=== PATIENT | female | born 1990 | race Two or more races ===

== ENCOUNTER 2022-12-06 12:51 | Inpatient (IN) | payer BC ==
[2022-12-06 13:23] VITALS: BMI 31.8
[2022-12-06] MEDS ORDERED: MAG HYDROX/AL HYDROX/SIMETH 30 ML UNIT-DOSE CUP PO PRN (13:46)
[2022-12-06] MEDS ORDERED: METHOCARBAMOL 500 MG TABLET PO PRN (13:46)
[2022-12-06] MEDS ORDERED: BENZOCAINE/MENTHOL (CHLORASEPTIC ) LOZENGE MM PRN (13:46)
[2022-12-06] MEDS ORDERED: guaiFENesin 600 MG TABLET.ER (FP) PO PRN (13:46)
[2022-12-06] MEDS ORDERED: NALOXONE HCL 0.4 MG/ML VIAL IM PRN (13:46)
[2022-12-06] MEDS ORDERED: ONDANSETRON *ODT* 4 MG TABLET SL PRN (13:46)
[2022-12-06] MEDS ORDERED: ACETAMINOPHEN 325 MG TABLET (FP) PO PRN (13:46)
[2022-12-06] MEDS ORDERED: DICYCLOMINE HCL 10 MG CAPSULE PO PRN (13:46)
[2022-12-06] MEDS ORDERED: LOPERAMIDE HCL 2 MG CAPSULE PO PRN (13:46)
[2022-12-06] MEDS ORDERED: hydrOXYzine PAMOATE 25 MG CAPSULE (FP) PO PRN (13:46)
[2022-12-06] MEDS ORDERED: NALOXONE HCL (KLOXXADO) 8 MG SPRAY NS PRN (13:46)
[2022-12-06] MEDS ORDERED: LORazepam 1 MG TABLET PO PRN (13:46)
[2022-12-06] MEDS ORDERED: BENZONATATE 200 MG CAPSULE PO PRN (13:46)
[2022-12-06] MEDS ORDERED: MAGNESIUM HYDROX 2400MG/30ML ORAL SUSPENSION 30 ML CUP PO PRN (13:46)
[2022-12-06] MEDS ORDERED: IBUPROFEN 400 MG TABLET (FP) PO PRN (13:46)
[2022-12-06] MEDS ORDERED: POLYETHYLENE GLYCOL (HEALTHYLAX) 3350 17 GM PACKET PO PRN (13:46)
[2022-12-06] MEDS ORDERED: IBUPROFEN 600 MG TABLET (FP) PO PRN (13:46)
[2022-12-06] MEDS ORDERED: BISMUTH SUBSALICYLATE 524 MG/30 ML PO PRN (13:46)
[2022-12-06] MEDS ORDERED: PRENATAL VITAMINS W/ FOLIC ACID TABLET (FP) PO ONE (15:13)
[2022-12-06] MEDS: PRENATAL VITAMINS W/ FOLIC ACID TABLET (FP) PO SCH (15:52)
[2022-12-06 16:51] LABS: HEMATOCRIT 34.6 % (32.4-45.2); HEMOGLOBIN 11.4 GM/dL (10.7-15.3); MCH 27.5 pg (25.7-33.7); MCHC 32.9 g/dl (32.0-36.0); MEAN CELL VOLUME 83.5 fl (80-96); MEAN PLT VOLUME 7.7 fl (7.5-11.1); PLATELET COUNT 363 10^3/uL (134-434); RBC 4.14 M/mm3 (3.60-5.2); RDW 15.4 % (11.6-15.6); WHITE BLOOD COUNT 5.7 K/mm3 (4.0-10.0)
[2022-12-06 16:54] LABS: POTASSIUM 3.8 mmol/L (3.5-5.1)
[2022-12-06 16:56] LABS: ALBUMIN 3.8 g/dl (3.4-5.0); BLOOD UREA NITROGEN 11.5 mg/dL (7-18); CALCIUM 8.6 mg/dL (8.5-10.1)
[2022-12-06 17:00] LABS: CREATININE 0.7 mg/dL (0.55-1.3)
[2022-12-06 17:01] LABS: TOT PROT 7.4 g/dl (6.4-8.2)
[2022-12-06 17:02] LABS: BILIRUBIN,TOTAL 0.2 mg/dL (0.2-1)
[2022-12-06] MEDS: LORazepam 2 MG TABLET PO SCH ×2 (17:30→22:18)
[2022-12-06] MEDS ORDERED: EMTRICITABINE 200MG/TENOFOVIR 300MG PO SCH (20:15)
[2022-12-06] MEDS: EMTRICITABINE 200MG/TENOFOVIR 300MG PO SCH (21:44)
[2022-12-06] MEDS: MELATONIN 5 MG TABLETS PO SCH (22:17)
[2022-12-06] MEDS: THIAMINE HCL 100 MG TABLET (FP) PO SCH (22:18)
[2022-12-07] MEDS: LORazepam 2 MG TABLET PO SCH ×4 (05:27→23:16)
[2022-12-07] MEDS: EMTRICITABINE 200MG/TENOFOVIR 300MG PO SCH (10:13)
[2022-12-07] MEDS: PRENATAL VITAMINS W/ FOLIC ACID TABLET (FP) PO SCH (10:13)
[2022-12-07] MEDS: LACTULOSE 20 GM/30 ML UDC (FOR ORAL USE ONLY) PO SCH ×2 (13:01→23:16)
[2022-12-07] MEDS: THIAMINE HCL 100 MG TABLET (FP) PO SCH (23:16)
[2022-12-07] MEDS: MELATONIN 5 MG TABLETS PO SCH (23:16)
[2022-12-08] MEDS: LORazepam 1 MG TABLET PO SCH ×4 (05:32→22:34)
[2022-12-08] MEDS: LACTULOSE 20 GM/30 ML UDC (FOR ORAL USE ONLY) PO SCH ×3 (05:33→22:34)
[2022-12-08] MEDS: PRENATAL VITAMINS W/ FOLIC ACID TABLET (FP) PO SCH (10:30)
[2022-12-08] MEDS: EMTRICITABINE 200MG/TENOFOVIR 300MG PO SCH (10:30)
[2022-12-08] MEDS: MELATONIN 5 MG TABLETS PO SCH (22:34)
[2022-12-08] MEDS: THIAMINE HCL 100 MG TABLET (FP) PO SCH (22:34)
[2022-12-09] MEDS ORDERED: LORazepam 0.5 MG TABLET PO PRN
[2022-12-09] MEDS: LACTULOSE 20 GM/30 ML UDC (FOR ORAL USE ONLY) PO SCH (05:25)
[2022-12-09] MEDS: LORazepam 0.5 MG TABLET PO SCH ×2 (05:25→11:08)
[2022-12-09 07:12] VITALS: BP 115/65; PULSE 62; RESP 16; TEMP 97.6
[2022-12-09] MEDS: PRENATAL VITAMINS W/ FOLIC ACID TABLET (FP) PO SCH (10:51)
[2022-12-09] MEDS: EMTRICITABINE 200MG/TENOFOVIR 300MG PO SCH (10:51)
[2022-12-10] MEDS ORDERED: LORazepam 0.5 MG TABLET PO ONE (05:00)
== END 2022-12-09 11:00 | disposition home or self-care (01) | DRG 774 ==
LOC: YASAS 12:51 → Y6N 14:43
PROVIDERS: ADMIT Allergy & Immunology; ATTEND Surgery
PROC: HZ2ZZZZ Detoxification Services for Substance Abuse Treatment (ICD-10-PCS; principal; 2022-12-06)
DX: F10.230 Alcohol dependence with withdrawal, uncomplicated (principal); F14.10 Cocaine abuse, uncomplicated; F17.210 Nicotine dependence, cigarettes, uncomplicated; F41.9 Anxiety disorder, unspecified; F32.A Depression, unspecified
CPT/HCPCS: 36415; 80053; 81025; 82140; 85027; 86780; 87635; 87811; 93005; 93010